=== PATIENT | female | born 1955 ===

== ENCOUNTER → 2020-01-06 | Outpatient (CLI) | payer OTHER | LOC: SJCVCIMAG 08:50 | PROVIDERS: ATTEND Internal Medicine Cardiovascular Disease | DX: I34.0 Nonrheumatic mitral (valve) insufficiency (principal); R93.1 Abnormal findings on diagnostic imaging of heart and coronary circulation; I10 Essential (primary) hypertension; Z82.49 Family history of ischemic heart disease and other diseases of the circulatory system ==